=== PATIENT | male | born 1985 | race Caucasian/White ===

== ENCOUNTER 2019-09-20 18:12 | Emergency (ER) | payer OTHER, BC ==
--- NOTE | 2019-09-20 18:44 | EDM.PDOC ---
ED HPI GENERAL MEDICAL PROBLEM - General Chief Complaint: Upper Extremity Injury/Pain Stated Complaint: LT ARM PAIN Time Seen by Provider: 09/20/19 18:30 Source of Information: Reports: Patient History Limitations: Reports: No Limitations - History of Present Illness INITIAL COMMENTS - FREE TEXT/NARRATIVE: Patient presented to the ED because of left upper arm pain. A corn header part fell on his left forearm. The pain is sharp,7/10. He is able to extend and flex his left wrist without any difficulty. 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 Pain Score (Numeric/FACES): 6 - Related Data Allergies Allergy/AdvReac Type Severity Reaction Status Date / Time No Known Allergies Allergy Verified 09/20/19 18:21 Home Meds: Home Meds clomiPHENE citrate [Clomiphene Citrate] 25 mg PO BEDTIME 09/20/19 [History] Past Medical History Musculoskeletal History: Reports: Fracture Other Musculoskeletal History: hx fx R scapula, 1, 2 & 7th cervical vertebrae, Endocrine/Metabolic History: Reports: Obesity/BMI 30+ - Infectious Disease History Infectious Disease History: Reports: Chicken Pox - Past Surgical History Musculoskeletal Surgical History: Reports: None Social & Family History - Family History Family Medical History: Noncontributory - Tobacco Use Smoking Status *Q: Current Every Day Smoker Years of Tobacco use: 15 Packs/Tins Daily: 1 - Caffeine Use Caffeine Use: Reports: Coffee, Soda - Alcohol Use Days Per Week of Alcohol Use: 2 Number of Drinks Per Day: 1 Total Drinks Per Week: 2 - Recreational Drug Use Recreational Drug Use: No Review of Systems - Review of Systems Review Of Systems: See Below Constitutional: Reports: No Symptoms Eyes: Reports: No Symptoms Ears: Reports: No Symptoms Nose: Reports: No Symptoms Mouth/Throat: Reports: No Symptoms Respiratory: Reports: No Symptoms Cardiovascular: Reports: No Symptoms GI/Abdominal: Reports: No Symptoms Musculoskeletal: Reports: Arm Pain Skin: Reports: No Symptoms Neurological: Reports: No Symptoms ED EXAM, GENERAL - Physical Exam Exam: See Below Exam Limited By: No Limitations General Appearance: Alert, No Apparent Distress Ears: Normal External Exam, Normal Canal, Hearing Grossly Normal Nose: Normal Inspection, Normal Mucosa, No Blood Throat/Mouth: Normal Inspection, Normal Lips, Normal Teeth, No Airway Compromise Head: Atraumatic, Normocephalic Neck: Normal Inspection, Non-Tender, Full Range of Motion Respiratory/Chest: No Respiratory Distress, Lungs Clear, Normal Breath Sounds Cardiovascular: Normal Peripheral Pulses, Regular Rate, Rhythm, No Rub GI/Abdominal: Normal Bowel Sounds, Soft, Non-Tender, No Organomegaly Back Exam: Normal Inspection, Full Range of Motion Extremities: Normal Inspection, Other (tenderness and selling mid left forearm) Course - Vital Signs Text/Narrative:: xray left forearm-neg Last Recorded V/S: Last Vital Signs Temp 37.1 C 09/20/19 18:12 Pulse 93 09/20/19 18:12 Resp 18 09/20/19 18:12 BP 168/75 H 09/20/19 18:12 Pulse Ox 98 09/20/19 18:12 - Orders/Labs/Meds Orders: Active Orders 24 hr Category Date Time Status Forearm 2V Lt [CR] Stat Exams 09/20/19 18:39 Ordered Departure - Departure Time of Disposition: 19:30 Disposition: Home, Self-Care 01 Condition: Good Clinical Impression: Contusion - Discharge Information Referrals: PCP,Unknown [Ordering Only Provider] - Forms: ED Department Discharge Additional Instructions: please read discharge instructions on contusion apply ice elevate take ibuprofen 800 mg with tylenol 1000 mg every 8 hours as needed for pain follow up if symptoms persist we will call you if there is any change on the xray reading - My Orders Last 24 Hours: My Active Orders 09/20/19 18:39 Forearm 2V Lt [CR] Stat - Assessment/Plan Last 24 Hours: My Active Orders 09/20/19 18:39 Forearm 2V Lt [CR] Stat
--- NOTE | 2019-09-21 11:26 | CR ---
INDICATION: Left forearm injury. LEFT FOREARM: Three views of the left forearm in two projections revealed an arrow pointing to the area of injury at the proximal shafts of the radius and ulna. A fracture, dislocation, or other significant appearing bone or joint abnormality was not identified. If an occult fracture site is suspected clinically, re-examination in 10-14 days may be helpful. MTDD
== END 2019-09-20 19:43 | disposition home or self-care (01) ==
LOC: FB.ED 18:12
DX: S50.12XA Contusion of left forearm, initial encounter (principal); F17.210 Nicotine dependence, cigarettes, uncomplicated; W20.8XXA Other cause of strike by thrown, projected or falling object, initial encounter
CPT/HCPCS: 73090-LT; 99283-25

== ENCOUNTER 2020-06-18 15:30 | Emergency (ER) | payer OTHER, BC ==
[2020-06-18] MEDS ORDERED: Sodium Chloride 0.9% 10 ML Syringe FLUSH PRN (15:34)
--- NOTE | 2020-06-18 15:51 | PCM.SN.2 ---
- Free Text/Narrative Note: Called to ER for a trauma code. Patient alert and stable. IV started in his Left hand #20 jelco after prepped with IV prep. IV flushed with 10cc's of saline and secured with opsite and tape.
--- NOTE | 2020-06-18 16:28 | EDM.PDOC ---
ED HPI GENERAL MEDICAL PROBLEM - General Chief Complaint: Trauma Stated Complaint: FALL BAKWARDS OFF LADDER Time Seen by Provider: 06/18/20 15:35 Source of Information: Reports: Patient History Limitations: Reports: No Limitations - History of Present Illness INITIAL COMMENTS - FREE TEXT/NARRATIVE: Patient presented to the ED after falling from a 4 feet ladder. He said he was o ut of balance and tipped over and fell. He hit the back of his head into the concrete and sustained a goose egg bump hematoma over the mid occipital area. He c/o 4/10 pain over the occipital area. There is no neck pain or any other injuries sustained after the fall. He arrived in the ED on a back board and has a GCS of 15. 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 - Related Data Allergies Allergy/AdvReac Type Severity Reaction Status Date / Time No Known Allergies Allergy Verified 06/18/20 15:57 Home Meds: Home Meds NK [No Known Home Meds] 06/18/20 [History] Past Medical History Musculoskeletal History: Reports: Fracture Other Musculoskeletal History: hx fx R scapula, 1, 2 & 7th cervical vertebrae, Endocrine/Metabolic History: Reports: Obesity/BMI 30+ - Infectious Disease History Infectious Disease History: Reports: Chicken Pox - Past Surgical History Musculoskeletal Surgical History: Reports: None Social & Family History - Family History Family Medical History: Noncontributory - Caffeine Use Caffeine Use: Reports: Coffee, Soda Review of Systems - Review of Systems Review Of Systems: See Below Constitutional: Reports: No Symptoms Eyes: Reports: No Symptoms Ears: Reports: No Symptoms Nose: Reports: No Symptoms Mouth/Throat: Reports: No Symptoms Respiratory: Reports: No Symptoms Cardiovascular: Reports: No Symptoms GI/Abdominal: Reports: No Symptoms Genitourinary: Reports: No Symptoms Musculoskeletal: Reports: No Symptoms Skin: Reports: No Symptoms Neurological: Reports: No Symptoms Psychiatric: Reports: No Symptoms ED EXAM, GENERAL - Physical Exam Exam: See Below Exam Limited By: No Limitations General Appearance: Alert, No Apparent Distress Eye Exam: Bilateral Eye: PERRL Ears: Normal External Exam, Normal Canal, Hearing Grossly Normal Nose: Normal Inspection, Normal Mucosa Throat/Mouth: Normal Inspection, Normal Lips, Normal Teeth Head: Other (goose egg hematoma mid occipital area) Neck: Normal Inspection, Supple, Non-Tender Respiratory/Chest: No Respiratory Distress, Lungs Clear, Normal Breath Sounds Cardiovascular: Normal Peripheral Pulses, Regular Rate, Rhythm, No Edema, No Gallop, No JVD, No Murmur GI/Abdominal: Normal Bowel Sounds, Soft, Non-Tender, No Organomegaly Back Exam: Normal Inspection, Full Range of Motion Extremities: Normal Inspection, Normal Range of Motion Neurological: Alert, Oriented, CN II-XII Intact, Normal Cognition Psychiatric: Normal Affect Course - Vital Signs Text/Narrative:: Labs/Head and C-spine CT-neg C-collar applied in the ED Trauma code activated - Orders/Labs/Meds Orders: Active Orders 24 hr Category Date Time Status Cervical Spine wo Cont [CT] Stat Exams 06/18/20 15:34 Taken Head wo Cont [CT] Stat Exams 06/18/20 15:34 Taken Sodium Chloride 0.9% [Saline Flush] Med 06/18/20 15:34 Active 10 ml FLUSH ASDIRECTED PRN Saline Lock Insert [OM.PC] Routine Oth 06/18/20 15:34 Ordered Medication Orders Sodium Chloride (Saline Flush) 10 ml FLUSH ASDIRECTED PRN PRN Reason: Keep Vein Open Last Admin: 06/18/20 15:40 Dose: 10 ml Documented by: GEORGES Labs: Laboratory Tests 06/18/20 06/18/20 06/18/20 Range/Units 15:40 15:40 15:40 WBC 10.1 (4.5-12.0) X10-3/uL RBC 6.07 H (4.30-5.75) x10(6)uL Hgb 17.2 (13.5-17.8) g/dL Hct 52.4 H (30.0-51.3) % MCV 86.4 (80-96) fL MCH 28.4 (27.7-33.6) pg MCHC 32.9 (32.2-35.4) g/dL RDW 12.2 (11.5-15.5) % Plt Count 201 (125-369) X10(3)uL MPV 9.0 (7.4-10.4) fL Neut % (Auto) 52.7 (46-82) % Lymph % (Auto) 37.6 H (13-37) % [place] % (Auto) 6.5 (4-12) % Eos % (Auto) 2 (1.0-5.0) % Baso % (Auto) 1 (0-2) % Neut # (Auto) 5.3 (1.6-8.3) # Lymph # (Auto) 3.8 (0.6-5.0) # [place] # (Auto) 0.7 (0.0-1.3) # Eos # (Auto) 0.2 (0.0-0.8) # Baso # (Auto) 0.1 (0.0-0.2) # PT 9.9 (9.0-11.1) sec INR 0.91 L (1.00-1.24) APTT 25.2 (24.4-33.2) SECONDS Sodium 140 (135-145) mmol/L Potassium 4.0 (3.5-5.3) mmol/L Chloride 105 (100-110) mmol/L Carbon Dioxide 27 (21-32) mmol/L BUN 14 (7-18) mg/dL Creatinine 1.1 (0.70-1.30) mg/dL Est Cr Clr Drug Dosing 94.62 mL/min Estimated GFR (MDRD) > 60 (>60) BUN/Creatinine Ratio 12.7 (9-20) Glucose 89 (80-116) mg/dL Calcium 9.3 (8.6-10.2) mg/dL Total Bilirubin 0.3 (0.1-1.3) mg/dL AST 27 H (5-25) IU/L ALT 47 H (12-36) U/L Alkaline Phosphatase 56 (56-112) IU/L Total Protein 7.5 (6.0-8.0) g/dL Albumin 3.9 (3.5-5.2) g/dL Globulin 3.6 g/dL Albumin/Globulin Ratio 1.1 Meds: Medications Generic Name Dose Route Start Last Admin Trade Name Freq PRN Reason Stop Dose Admin Sodium Chloride 10 ml 06/18/20 15:34 06/18/20 15:40 Saline Flush FLUSH 10 ml ASDIRECTED PRN Administration Keep Vein Open Departure - Departure Time of Disposition: 16:25 Disposition: Home, Self-Care 01 Condition: Good Clinical Impression: Head injury, Cervical strain, acute - Discharge Information Instructions: Head Injury, Adult, Cervical Sprain, [id number] Referrals: PCP,None [Primary Care Provider] - Forms: ED Department Discharge Additional Instructions: Please read discharge instructions on head injury and cervical spine sprain Apply ice on your hematoma/bump at the back of your head Take ibuprofen 800 mg with tylenol 1000 mg every 8 hours as needed for pain/aches Follow up as needed Sepsis Event Note (ED) - Evaluation Sepsis Screening Result: No Definite Risk - My Orders Last 24 Hours: My Active Orders 06/18/20 15:34 Cervical Spine wo Cont [CT] Stat Head wo Cont [CT] Stat Sodium Chloride 0.9% [Saline Flush] 10 ml FLUSH ASDIRECTED PRN Saline Lock Insert [OM.PC] Routine - Assessment/Plan Last 24 Hours: My Active Orders 06/18/20 15:34 Cervical Spine wo Cont [CT] Stat Head wo Cont [CT] Stat Sodium Chloride 0.9% [Saline Flush] 10 ml FLUSH ASDIRECTED PRN Saline Lock Insert [OM.PC] Routine
--- NOTE | 2020-06-18 17:59 | CT ---
INDICATION: Head and neck injury - fell backwards 3 to 4 feet striking posterior head. CT HEAD WITHOUT CONTRAST: Spiral 3.75 mm axial sections were obtained through the brain without contrast 06/18/20 with sagittal and coronal reconstructions - no comparisons. Total exam DLP was 1399.62 mGy-cm. What appear to be too small retention cysts are noted at the base of the right maxillary antrum. Paranasal sinuses and mastoid air cells are otherwise well aerated. There is a moderate size scalp hematoma in the posterior right cranium area - occipitoparietal area in the midline and extending to the right with what appears to be a laceration in that area. No underlying cranial fracture site was identified. No shift of midline structures, ventricular abnormalities or abnormal areas of density were seen except to note what appears to be a tiny incidental lipoma in the posterior fossa midline. IMPRESSION: 1. No definite acute intracranial abnormality. 2. Scalp hematoma moderate to moderately large in size extending across the midline to the left but more prominently on the right in the occipital and to a lesser extent parietal area. MTDD
--- NOTE | 2020-06-18 18:05 | CT ---
INDICATION: Head and neck injury after a fall. CT CERVICAL SPINE WITHOUT CONTRAST: Spiral 2.5 mm axial sections were obtained through the cervical spine with sagittal and coronal reconstructions 06/18/20 - no comparison. Total exam DLP was 640.76 mGy-cm. The atlas, odontoid including the axis were intact. Vertebral elements appear to be well aligned. Vertebral body and disc heights appear to be maintained with some minimal hypertrophic change at the C3 and C4 vertebral bodies. Prevertebral space and bone density appear to be normal. Neural foramina were patent in appearance. No acute fracture or dislocation was suggested. There are what appear to be calcifications in the posterior ligaments at the level of the mid to lower cervical spine which may represent dystrophic calcifications in the soft tissue from previous injuries. IMPRESSION: No acute fracture or dislocation. Report was called to Dr. Hood at 1611 hours. [facility]
== END 2020-06-18 17:50 | disposition home or self-care (01) ==
LOC: FB.ED 15:30
DX: S16.1XXA Strain of muscle, fascia and tendon at neck level, initial encounter (principal); S00.03XA Contusion of scalp, initial encounter; E66.9 Obesity, unspecified; Z68.42 Body mass index [BMI] 45.0-49.9, adult; W11.XXXA Fall on and from ladder, initial encounter
CPT/HCPCS: 36415; 70450; 72125; 80053; 85025; 85610; 85730; 99284-25

== ENCOUNTER 2020-06-24 14:46 | Emergency (ER) | payer OTHER, BC ==
--- NOTE | 2020-06-24 16:18 | EDM.PDOC ---
ED HPI GENERAL MEDICAL PROBLEM - General Chief Complaint: General Stated Complaint: DIZZY Time Seen by Provider: 06/24/20 15:00 Source of Information: Reports: Patient History Limitations: Reports: No Limitations - History of Present Illness INITIAL COMMENTS - FREE TEXT/NARRATIVE: Patient presented to the ED because of dizzy spells since he fell from a 4 ft ladder while at work on 06/18/20. He had a complete trauma work up which was negative . According to jordan on several occasions whenver he looks up he will experience a vertigo which he describes as spinning sensation which usually last for less than a minute. There is no associated tinnitus, headache, altere LOC during the dizzy spell. Neck Pain Score (Numeric/FACES): 2 - Related Data Allergies Allergy/AdvReac Type Severity Reaction Status Date / Time No Known Allergies Allergy Verified 06/18/20 15:57 Home Meds: Home Meds Meclizine [Antivert] 25 mg PO Q6H PRN #15 tab 06/24/20 [Rx] Past Medical History HEENT History: Reports: Impaired Vision Musculoskeletal History: Reports: Fracture Other Musculoskeletal History: hx fx R scapula, 1, 2 & 7th cervical vertebrae, Endocrine/Metabolic History: Reports: Obesity/BMI 30+ - Infectious Disease History Infectious Disease History: Reports: Chicken Pox - Past Surgical History Musculoskeletal Surgical History: Reports: None Social & Family History - Family History Family Medical History: Noncontributory - Tobacco Use Smoking Status *Q: Current Every Day Smoker Years of Tobacco use: 15 Packs/Tins Daily: 1 - Caffeine Use Caffeine Use: Reports: Coffee - Recreational Drug Use Recreational Drug Use: No ED ROS GENERAL - Review of Systems Review Of Systems: See Below Constitutional: Reports: No Symptoms HEENT: Reports: No Symptoms Respiratory: Reports: No Symptoms Cardiovascular: Reports: No Symptoms Endocrine: Reports: No Symptoms GI/Abdominal: Reports: No Symptoms : Reports: No Symptoms Musculoskeletal: Reports: No Symptoms Skin: Reports: No Symptoms Neurological: Reports: No Symptoms Psychiatric: Reports: No Symptoms Hematologic/Lymphatic: Reports: No Symptoms ED EXAM, GENERAL - Physical Exam Exam: See Below Exam Limited By: No Limitations General Appearance: Alert, No Apparent Distress Ears: Normal External Exam, Normal Canal Nose: Normal Inspection, Normal Mucosa Throat/Mouth: Normal Inspection, Normal Lips, Normal Teeth Head: Atraumatic, Normocephalic Neck: Normal Inspection, Supple, Non-Tender Respiratory/Chest: No Respiratory Distress, Lungs Clear, Normal Breath Sounds Cardiovascular: Normal Peripheral Pulses, Regular Rate, Rhythm, No Edema, No Gallop GI/Abdominal: Normal Bowel Sounds, Soft, Non-Tender, No Organomegaly Back Exam: Normal Inspection, Full Range of Motion Extremities: Normal Inspection, Normal Range of Motion, Non-Tender Neurological: Alert, Oriented, CN II-XII Intact, Normal Cognition, Normal Gait Course - Vital Signs Text/Narrative:: EKG-NSR Labs-NL Last Recorded V/S: Last Vital Signs Temp 36.9 C 06/24/20 14:58 Pulse 87 06/24/20 16:15 Resp 16 06/24/20 16:15 BP 126/68 06/24/20 16:15 Pulse Ox 98 06/24/20 16:15 - Orders/Labs/Meds Orders: Active Orders 24 hr Category Date Time Status EKG 12 Lead [EK] Routine Ther 06/24/20 15:15 Ordered Labs: Laboratory Tests 06/24/20 06/24/20 Range/Units 15:30 15:30 WBC 10.0 (4.5-12.0) X10-3/uL RBC 5.59 (4.30-5.75) x10(6)uL Hgb 16.0 (13.5-17.8) g/dL Hct 48.0 (30.0-51.3) % MCV 85.8 (80-96) fL MCH 28.6 (27.7-33.6) pg MCHC 33.4 (32.2-35.4) g/dL RDW 12.3 (11.5-15.5) % Plt Count 227 (125-369) X10(3)uL MPV 8.2 (7.4-10.4) fL Neut % (Auto) 57.4 (46-82) % Lymph % (Auto) 34.1 (13-37) % [place] % (Auto) 5.7 (4-12) % Eos % (Auto) 2 (1.0-5.0) % Baso % (Auto) 1 (0-2) % Neut # (Auto) 5.7 (1.6-8.3) # Lymph # (Auto) 3.4 (0.6-5.0) # Stewart # (Auto) 0.6 (0.0-1.3) # Eos # (Auto) 0.2 (0.0-0.8) # Baso # (Auto) 0.1 (0.0-0.2) # Sodium 140 (135-145) mmol/L Potassium 4.1 (3.5-5.3) mmol/L Chloride 104 (100-110) mmol/L Carbon Dioxide 27 (21-32) mmol/L BUN 17 (7-18) mg/dL Creatinine 1.1 (0.70-1.30) mg/dL Est Cr Clr Drug Dosing 94.62 mL/min Estimated GFR (MDRD) > 60 (>60) BUN/Creatinine Ratio 15.5 (9-20) Glucose 95 (80-116) mg/dL Calcium 8.8 (8.6-10.2) mg/dL Total Bilirubin 0.4 (0.1-1.3) mg/dL AST 23 D (5-25) IU/L ALT 42 H D (12-36) U/L Alkaline Phosphatase 53 L (56-112) IU/L Total Protein 6.9 (6.0-8.0) g/dL Albumin 3.5 (3.5-5.2) g/dL Globulin 3.4 g/dL Albumin/Globulin Ratio 1.0 Departure - Departure Time of Disposition: 16:15 Disposition: Home, Self-Care 01 Condition: Good Clinical Impression: Vertigo, Head injury, Contusion - Discharge Information Prescriptions: Meclizine [Antivert] 25 mg PO Q6H PRN #15 tab PRN Reason: Dizziness Instructions: Vertigo, [id number], Head Injury, Adult, [id number] Referrals: PCP,None [Primary Care Provider] - Forms: ED Department Discharge Additional Instructions: Please read discharge instructions on vertigo Take meclizine 25 mg every 6 hours for 3 then take it as needed Follow up with your doctor if your vertigo persist or worsens Sepsis Event Note (ED) - Evaluation Sepsis Screening Result: No Definite Risk - Focused Exam Vital Signs: Vital Signs Temp Pulse Resp BP Pulse Ox 06/24/20 16:15 87 16 126/68 98 06/24/20 15:15 144/78 H 06/24/20 15:00 18 160/82 H 100 06/24/20 14:58 36.9 C 94 18 163/88 H 97 - My Orders Last 24 Hours: My Active Orders 06/24/20 15:15 EKG 12 Lead [EK] Routine - Assessment/Plan Last 24 Hours: My Active Orders 06/24/20 15:15 EKG 12 Lead [EK] Routine
== END 2020-06-24 16:34 | disposition home or self-care (01) ==
LOC: FB.ED 14:46
DX: S09.90XA Unspecified injury of head, initial encounter (principal); S10.93XA Contusion of unspecified part of neck, initial encounter; F17.210 Nicotine dependence, cigarettes, uncomplicated; E66.9 Obesity, unspecified; W11.XXXA Fall on and from ladder, initial encounter
CPT/HCPCS: 36415; 80053; 85025; 93005; 99283; 99284-25

== ENCOUNTER → 2022-10-08 | Day surgery (SDC) | payer BC ==
[~2022-10-08] MED LIST: Bupivacaine 0.5%/EPINEPHrine 1:200,000 10 ML SDV INJECT ONE; Dexamethasone 4 MG/ML 5 ML MDV IVPUSH ONE; Glycopyrrolate 0.2 MG/ML 5 ML MDV IV ONE; Ketamine 500 mg/10 ML MDV IV ONE; Ketorolac 30 MG/ML SDV IVPUSH ONE; Lactated Ringers 1,000 ML IV ONE; Lactated Ringers 1,000 ML IV SCH; Midazolam 1 MG/ML 2 ML SDV IV ONE; Neostigmine Methylsulfate 10 MG/10 ML MDV IVPUSH ONE; Ondansetron 4 MG/2 ML SDV IVPUSH ONE; Propofol 200 MG/20 ML SDV IV ONE; Rocuronium 100 MG/10 ML MDV IV ONE; Sodium Chloride 0.9% 10 ML Syringe FLUSH PRN; fentaNYL 100 MCG/2 ML SDV IV ONE
== END | disposition home or self-care (01) ==
LOC: FB.SDS 06:45
PROVIDERS: ATTEND Surgery
DX: K82.8 Other specified diseases of gallbladder (principal); E66.01 Morbid (severe) obesity due to excess calories; Z79.899 Other long term (current) drug therapy; Z68.41 Body mass index [BMI] 40.0-44.9, adult
CPT/HCPCS: 00840; 47562; 88304; J1100; J1885; J2250; J2405; J2704; J2710; J3010; J3490; J7120